=== PATIENT | female | born 1995 | race Two or more races ===

== ENCOUNTER 2023-09-26 09:03 | Emergency (ER) | payer OTHER ==
[~2023-09-26] VITALS: Ht 157.5 cm; Wt 54.4 kg
[~2023-09-26 09:03] MED LIST: GILTUSS TR1 TAB.SR . PO; SYNTHROID112 MCG PO; TYLENOL325 MG PO; ZITHROMAX1 G/PKT PO
[2023-09-26] MEDS ORDERED: LEVOTHYROXINE175 MCG PO (09:40)
[2023-09-26 10:21] LABS: HEMATOCRIT 36.3 % (36.0-45.00); MEAN CELL VOLUME 83.1 fL (80.00-100.00); MEAN CORPUSCULAR HEMOGLOBIN 27.6 pg (27.00-32.0); MEAN CORPUSCULAR HGB CONC 33.2 g/dl (32.0-36.0); PLATELET COUNT 282 K/uL (150-450); RED BLOOD COUNT 4.36 M/uL (4.00-6.00); RED CELL DISTRIBUTION WIDTH 13.6 % (11.5-14.5)
== END 2023-09-26 13:02 | disposition home or self-care (01) ==
LOC: ER 09:04
PROVIDERS: General Practice
DX: O20.8 Other hemorrhage in early pregnancy (principal); Z3A.01 Less than 8 weeks gestation of pregnancy; N93.9 Abnormal uterine and vaginal bleeding, unspecified; R10.2 Pelvic and perineal pain; E03.8 Other specified hypothyroidism